=== PATIENT | male | born 1970 | race Caucasian/White ===

== ENCOUNTER 2020-02-15 09:58 | Outpatient (CLI) | payer OTHER ==
--- NOTE | 2020-02-15 10:27 | RAD ---
XR Foot Rt 3 View STANDARD History: Infection Comparison: None. Findings: Plantar soft tissue ulcer at the fifth metatarsal phalangeal joint. Fracture of the fourth metatarsal head/neck with erosive changes. Absent second and third metatarsal heads. Absent second toe distal to the metatarsal neck. Abnormal valgus angulation of the great toe metatarsal phalangeal joint and interphalangeal joint. Li sfranc interval is widened with erosive changes of the first and second tarsometatarsal joints. Impression: 1. Large plantar ulcer of the small toe metatarsal phalangeal joint with mild osteopenia and of the a djacent metatarsal head suggesting osteomyelitis. 2. Chronic osteomyelitis of the second, third and fourth metatarsal heads with pathologic fracture th rough the fourth metatarsal head. 3. Absent second and third metatarsal heads with amputation through the second metatarsal head and schrader bluxation of the third metatarsal phalangeal joint due to absent eroded metatarsal head.
== END 2020-02-15 09:59 | disposition home or self-care (01) ==
LOC: BICRAD 09:58
PROVIDERS: ATTEND Nurse Practitioner Family
DX: E10.621 Type 1 diabetes mellitus with foot ulcer (principal); L97.412 Non-pressure chronic ulcer of right heel and midfoot with fat layer exposed; M86.671 Other chronic osteomyelitis, right ankle and foot; M85.871 Other specified disorders of bone density and structure, right ankle and foot

== ENCOUNTER 2020-02-24 23:25 | Inpatient (IN) | payer OTHER ==
[2020-02-25 02:01] VITALS: BMI 18.2
[2020-02-25] MEDS ORDERED: Labetalol HCl 100 MG/20 ML VIAL SLOW IVP SCH (02:45)
[2020-02-25] MEDS ORDERED: Ondansetron ODT 4 MG TAB PO PRN (03:14)
[2020-02-25] MEDS ORDERED: Ondansetron PF 4 MG/2 ML Vial IVP PRN (03:14)
[2020-02-25] MEDS ORDERED: Dextrose 5% in Water 1,000 ML IV PRN (03:17)
[2020-02-25] MEDS ORDERED: Dextrose 50% Abboject 50 ML SYRINGE SLOW IVP PRN (03:17)
[2020-02-25] MEDS ORDERED: HumaLOG 300 UNITS/3 ML VIAL SC PRN (03:17)
[2020-02-25] MEDS ORDERED: Acetaminophen 325 MG TAB PO PRN (03:18)
[2020-02-25] MEDS ORDERED: Acetaminophen 650 MG Suppository PR PRN (03:18)
[2020-02-25 03:29] LABS: #Lymphocytes 0.6 thou/uL (1.20-3.40); #Monocytes 1.9 thou/uL (0.11-0.59); #Neutrophils 12.8 thou/uL (1.40-6.50); %Basophils 0.2 % (0.0-1.0); %Eosinophils 0.1 % (0.0-10.0); %Monocytes 12.4 % (0.0-10.0); %Neutrophils 83.3 % (42.0-75.0); Hemoglobin 10.9 g/dL (14.0-18.0); Mean Corpuscular HGB CONC 30.9 g/dL (32.0-36.0); Mean Platelet Volume 6.9 fL (7.4-10.4); Platelet Count 400 thou/uL (130-400); RBC Distribution Width 11.3 % (11.5-14.5); Red Blood Cell (RBC) Count 3.63 mill/uL (4.70-6.10); White Blood Cell (WBC) Count 15.4 thou/uL (4.8-10.8)
[2020-02-25 03:53] LABS: Lactic Acid 0.7 mmol/L (0.5-2.2)
--- NOTE | 2020-02-25 03:55 | PDOC.HHP ---
Hospitalist HPI - History of Present Illness Right foot cellulitis/osteomyelitis History of Present Illness: Patient seen at [facility] with complaints of feeling generally unwell and with n/v for the last several days. He has had minimal oral intake. He has been having issues with a persistent infection to the right lateral foot which has not healed. He also had an ulceration on the 2nd toe of the left foot with a scab that was recently removed. He has diabetic peripheral neuropathy, therefore does not experience any associated pain. States he has been able to walk despite the wounds. Has not had consistent wound care. He was seen at [facility] on 02/11/2020 for the grade 3 ulcer on the right lateral food. At that time the ulcer measured 2.2 x 2.8 x 0.02 cm. He had d ebridement and was recommended medihoney and dressing changes daily x 1 month. Arterial dopplers done at that time showed strong pulses bilaterally. States he was seen by podiatry in previous months. Patient complaints of a lack of appetite, n/v, and feeling feverish. No headaches or dizziness. No chest pain, palpitations or sob. Denies abdominal pain. No urinary symptoms. Normal bowel movements, last one was yesterday. ED COURSE: EKG done at outside ED Labs showed a WCC of 15.4, Hgb 10.9, Platelets 400. Neutrophils 83.3%, Bands 13%. Na+ 135, K+ 5.2, Bicarb 20, Chloride 94, AG 26. BUN 35, creat 1.77, GFR 41. LFTs and lipase normal. Trop negative. Alk phos 154. Otherwise unremarkable. Ketones 4.16 VBG: pH 7.40, PCO2 36.5, PO2 23.8 Left foot xray done and showed: great toe distal phalangeal base fracture. No destructive osteolysis inolving the left foot suggesting osteomyelitis. Right foot xray showed: Worsening osteomyelitis when compared to 02/15/2020. He has septic arthritis of 4th digit and 5th digig MTP join with interval developme nt of a pathologic fracture involving the 5th digit metatarsal neck. He was started on IV antibiotics with Vanc and Cefepime. Given NS at 30mL/Kg continuous infusion. Given Tylenol 1 g and 10 units of Novolin with improved in glucose to 300s from 600s. For nausea he received Ondansetron 4 mg IV x 2. PAST MEDICAL HISTORY: 1. Diabetes type 1 2. Diabetic neuropathy 3. Chronic foot wounds/ulcers 4. Hyperlipidemia 5. Hypertension. 6. Chronic pain. PAST SURGICAL HISTORY: 1. Right toe amputation FAMILY HISTORY: SOCIAL HISTORY: Reports drinking a couple of beers a day. No heavy alcohol abuse. No drug use or tobacco use. Fully independent. Lives with his family and walks on his own without assisted devices. ALLERGIES: No known drug allergy. CURRENT MEDICATIONS: 1. Lisinopril. 2. Rosuvastatin. 3. Atenolol. 4. Potassium gluconate. 5. Krill oil. - Exam General Appearance: NAD, awake alert Eye: PERRL, anicteric sclera ENT: normocephalic atraumatic, no oropharyngeal lesions, moist mucosa Neck: supple, no lymphadenopathy Heart: RRR, no murmur, normal peripheral pulses Respiratory: CTAB, no wheezes, no rales, normal chest expansion Gastrointestinal: soft, non-tender, non-distended, normal bowel sounds Extremities - other findings: swelling of right foot with erythema. DP strong bilaterally Skin - other findings: Lft 2nd toe: ulcerated dry wound, Rt lateral foot ulcer w/erythema/edema Neurological: cranial nerve grossly intact Neurological - other findings: bilateral lower extremity neuropathy, chronic Musculoskeletal: no muscle wasting Psychiatric: normal affect, normal behavior, A&O x 3 Hospitalist Results - Labs Result Diagrams: 02/25/20 03:19 Lab results: WBC 15.4 thou/uL (4.8-10.8) H 02/25/20 03:19 Hgb 10.9 g/dL (14.0-18.0) L 02/25/20 03:19 Hct 35.2 % (42.0-52.0) L 02/25/20 03:19 MCV 97.0 fL (78.0-98.0) 02/25/20 03:19 Plt Count 400 thou/uL (130-400) 02/25/20 03:19 Neutrophils % 83.3 % (42.0-75.0) H 02/25/20 03:19 Hospitalist H&P A/P - Problem (1) Osteomyelitis of foot Code(s): M86.9 - OSTEOMYELITIS, UNSPECIFIED Status: Acute Assessment and Plan: Continue IV antibiotics Consult Ortho Wound care consulted Consult ID (2) Bandemia Code(s): D72.825 - BANDEMIA Status: Acute Assessment and Plan: As above. Repeat CBC and add-on lactic acid. Monitor WCC (3) CHE (acute kidney injury) Code(s): N17.9 - ACUTE KIDNEY FAILURE, UNSPECIFIED Status: Acute Assessment and Plan: Monitor renal function IV fluids (4) Hyperglycemia Code(s): R73.9 - HYPERGLYCEMIA, UNSPECIFIED Status: Acute Assessment and Plan: Repeat labs including ketones, glucose and VBG IV hydration Given Insulin prior to transfer. Has insulin pump, consider d/c if glucose improved and will be kept NPO for surgical intervention (5) Insulin dependent diabetes mellitus Code(s): [id number] - Status: Chronic Assessment and Plan: monitor glucose please see above (6) Diabetic neuropathy Code(s): E11.40 - TYPE 2 DIABETES MELLITUS WITH DIABETIC NEUROPATHY, UNSP Status: Chronic (7) Hypertension Code(s): I10 - ESSENTIAL (PRIMARY) HYPERTENSION Status: Chronic Assessment and Plan: Monitor BP Resume home medications once verified (8) Nausea & vomiting Code(s): R11.2 - NAUSEA WITH VOMITING, UNSPECIFIED Status: Resolved Assessment and Plan: Continue PRN Zofran - Plan Plan: CODE STATUS FULL GI Prophylaxis with Famotidine. Discussed with attending who agrees with plan as above.
[2020-02-25 03:57] LABS: Anion Gap 21 mmol/L (10-20); BUN (Urea Nitrogen) 31 mg/dL (8.9-20.6); Calc. Creatinine Clearance 51 mL/min (70-130); Calcium 8.6 mg/dL (7.8-10.44); Carbon Dioxide 16 mmol/L (22-29); Chloride 102 mmol/L (98-107); Estimated GFR-MDRD 52; Glucose 383 mg/dL (70-105); Magnesium 2.3 mg/dL (1.6-2.6); Potassium 4.4 mmol/L (3.5-5.1); Sodium 135 mmol/L (136-145)
[2020-02-25] MEDS: Sodium Chloride 0.9% 1,000 ML IV SCH ×3 (04:13→21:14)
[2020-02-25] MEDS: Cefepime 2 GM in Sodium Chloride 0.9% 100 ML IVPB SCH (04:14)
[2020-02-25] MEDS: Vancomycin 1 GM in Premix Bag 1 BAG IVPB SCH (04:14)
[2020-02-25 04:24] LABS: INR-International Normal Ratio 1.2; PTT 32.6 sec (22.9-36.1)
[2020-02-25] MEDS ORDERED: Promethazine HCl 25 MG/ML VIAL SLOW IVP SCH (05:45)
[2020-02-25] MEDS: Famotidine/PF 20 mg/2ml Vial SLOW IVP SCH ×2 (08:22→21:14)
[2020-02-25] MEDS ORDERED: FLU VACC QS2020-21(6MOS UP)/PF 60 MCG/0.5 ML SYRINGE IM ONE (09:00)
[2020-02-25] MEDS: Atenolol 25 MG TAB PO SCH (09:01)
[2020-02-25] MEDS: Lisinopril 5 MG TAB PO SCH (09:01)
[2020-02-25] MEDS: Rosuvastatin 5 MG TAB PO SCH (09:01)
[2020-02-25] MEDS: Insulin Glargine 15 UNITS in Pre-Filled Syringe 1 EACH SC SCH ×2 (09:01→21:14)
[2020-02-25] MEDS: HumaLOG 300 UNITS/3 ML VIAL SC PRN ×2 (12:32→17:38)
--- NOTE | 2020-02-25 14:17 | PDOC.HOSPP ---
- Subjective Encounter Date: 02/25/20 Encounter Time: 10:30 Subjective: has hiccoughs, is npo no pain in his foot as such, is able to move his ankle and to some extent toes - Objective Vital Signs & Weight: Vital Signs (12 hours) Temp Pulse Resp BP Pulse Ox 02/25/20 11:15 98.4 F 84 17 164/77 H 99 02/25/20 07:40 98.3 F 107 H 16 190/88 H 99 02/25/20 06:10 176/84 H 02/25/20 05:38 98.7 F 02/25/20 03:04 99 F 97 16 172/78 H 100 Weight Weight 130 lb 11.2 oz I&O: 02/24/20 02/25/20 02/26/20 06:59 06:59 06:59 Output Total 250 Balance -250 Result Diagrams: 02/25/20 03:19 02/25/20 03:19 Additional Labs: Accuchecks 02/25/20 02/25/20 11:09 05:35 POC Glucose 391 H 366 H Hospitalist ROS - Medication Medications: Active Medications Generic Name Dose Route Start Last Admin Trade Name Freq PRN Reason Stop Dose Admin Atenolol 25 mg 02/25/20 09:00 02/25/20 09:01 Atenolol 25 Mg Tab PO 25 mg DAILY TANIYA Administration Famotidine 20 mg 02/25/20 09:00 02/25/20 08:22 Famotidine/Pf 20 Mg/2ml Vial SLOW IVP 20 mg Q12HR TANIYA Administration Vancomycin HCl 1 gm/ Device 200 mls @ 200 mls/hr 02/25/20 04:00 02/25/20 04:14 IVPB 200 mls 0400 TANIYA Administration Cefepime HCl 2 gm/ Sodium 100 mls @ 200 mls/hr 02/25/20 05:00 02/25/20 04:14 Chloride IVPB 100 mls 0500 TANIYA Administration Sodium Chloride 1,000 mls @ 120 mls/hr 02/25/20 03:45 02/25/20 13:05 Normal Saline 0.9% IV 1,000 mls .Q8H20M TANIYA Administration Insulin Glargine 15 units/ 0.15 mls @ 0 mls/hr 02/25/20 09:00 02/25/20 09:01 Miscellaneous Medication SC 0.15 mls BID TANIYA Administration Insulin Human Lispro 0 units 02/25/20 03:17 02/25/20 12:32 Humalog 300 Units/3 Ml Vial SC 13 unit .AGGRESSIVE SLIDING PRN Administration Aggressive Correctional Scale Lisinopril 5 mg 02/25/20 09:00 02/25/20 09:01 Lisinopril 5 Mg Tab PO 5 mg DAILY TANIYA Administration Ondansetron HCl 4 mg 02/25/20 03:14 02/25/20 08:22 Ondansetron Odt 4 Mg Tab PO 4 mg Q6H PRN Administration Nausea/Vomiting Rosuvastatin Calcium 5 mg 02/25/20 09:00 02/25/20 09:01 Rosuvastatin 5 Mg Tab PO 5 mg DAILY TANIYA Administration - Exam General Appearance: awake alert Eye: PERRL, anicteric sclera ENT: no oropharyngeal lesions, moist mucosa Neck: supple, no JVD Heart: RRR, no murmur Respiratory: no wheezes, no rales Gastrointestinal: soft, non-tender, non-distended, normal bowel sounds Extremities - other findings: right forefoot in dressing, has plantar ulcer with edema, left 2nd toe ulce Neurological: cranial nerve grossly intact, no focal deficits Psychiatric: normal affect, A&O x 3 Hosp A/P (1) Osteomyelitis of foot Code(s): M86.9 - OSTEOMYELITIS, UNSPECIFIED Status: Acute Qualifiers: Osteomyelitis type: unspecified type Laterality: right Qualified Code(s): M86.9 - Osteomyelitis, unspecified (2) CHE (acute kidney injury) Code(s): N17.9 - ACUTE KIDNEY FAILURE, UNSPECIFIED Status: Acute (3) Diabetic neuropathy Code(s): E11.40 - TYPE 2 DIABETES MELLITUS WITH DIABETIC NEUROPATHY, UNSP Status: Chronic Qualifiers: Diabetes mellitus type: type 2 Diabetes mellitus complication detail: diabetic polyneuropathy Qualified Code(s): E11.42 - Type 2 diabetes mellitus with diabetic polyneuropathy (4) Hypertension Code(s): I10 - ESSENTIAL (PRIMARY) HYPERTENSION Status: Chronic Qualifiers: Hypertension type: essential hypertension Qualified Code(s): I10 - Essential (primary) hypertension (5) Insulin dependent diabetes mellitus Code(s): [id number] - Status: Chronic (6) Chronic anemia Code(s): D64.9 - ANEMIA, UNSPECIFIED Status: Chronic (7) FTT (failure to thrive) in adult Status: Acute - Plan is on cefepime and vanc lantus bid with aggressive coverage for now, no insulin pump is npo, awaiting surgical eval, likely will need ray amputation of right 4th and 5th Metatarsals recent arterial doppler in wound care was normal per patient hemostable he is very thin with a bmi of around 19 tx to med floor
[2020-02-25] MEDS ORDERED: traMADol HCl 50 MG TAB PO PRN (19:42)
[2020-02-25] MEDS: Acetaminophen 500 MG TAB PO PRN (21:55)
--- NOTE | 2020-02-25 23:00 | CON ---
DATE OF CONSULTATION: 02/25/2020 REASON FOR CONSULTATION: Complications related to neuropathy with inflammatory process in the right foot lateral aspect and second toe left foot with gangrene. HISTORY OF PRESENT ILLNESS: A 49-year-old with history of type 1 diabetes, hyperlipidemia, neuropathy, prior amputation of the right second toe, who presented with chronic inflammatory process with ulceration of the bottom aspect of the right lateral forefoot. He also noted discoloration of the second toe left foot. He apparently saw other doctors for this including a credit cashier, and he eventually had to be admitted. He was admitted yesterday. Initial findings, BP 180/89, pulse 128, O2 saturation 98%. The exam shows the foot findings with gangrene of the second toe left side and ulcer at the bottom aspect of the right lateral forefoot with swelling of the fourth and fifth MPJs skin site with erythema. Other findings included a sodium 135, creatinine 1.45, white cell count of 15.4, hemoglobin 10.9, platelets neutrophils. The glucose has ranged from 280 to 366. The foot x-ray, we have left foot x-ray and that did not show any destructive osteolysis and then there is a right foot x-ray, which showed osteomyelitis, septic arthritis fourth digit and fifth digit and DP joint with development of pathologic fracture metatarsal neck. Currently, Mr. Cifuentes is lying in bed. He appears in no distress. Denies any headaches, visual symptoms, sore throat, odynophagia, or dysphagia. No cough, sputum production, or chest pain. No abdominal pain or diarrhea. No genitourinary symptoms. He has neuropathy in the diminished sensation in the lower extremities. Not much pain right now. PAST MEDICAL HISTORY: Type 1 diabetes with neuropathy, prior amputation of the right second toe, and hyperlipidemia. SOCIAL HISTORY: Never smoker, lives with family in the area. He is unable to work at the moment. ALLERGIES: NONE. CURRENT MEDICATIONS: 1. Cefepime. 2. Glucagon. 3. Insulin. 4. Lisinopril. 5. Rosuvastatin. 6. Vancomycin. PHYSICAL EXAMINATION: VITAL SIGNS: T-max 99.2, blood pressure 140/70, pulse 87, respirations 16 to 18, and O2 saturation 100%. SKIN: Shows the right lateral forefoot with erythema, swelling, and ulcer at the bottom aspect of fourth and fourth digits MPJs skin site. In the left side, there is a necrotic second toe. No lymphadenopathy. HEENT: Ocular movements are conjugate. Oral cavity with numerous missing teeth. NECK: Supple. LUNGS: Symmetric. Clear breath sounds. HEART: S1 and S2, regular rate. No S3 or S4. ABDOMEN: Soft. Not distended or tender. No ascites. No bladder distention. EXTREMITIES: Pulses are 1+ in dorsalis pedis. Cap refill has kind of sluggish in the toes. I would say around going to 3 to 4 seconds. No edema. NEUROLOGIC: Nonfocal including cognitive function. Speech is normal. ASSESSMENT: Type 1 diabetes with neuropathy and inflammatory complications secondary to ulcerations and pressure damage to the second toe left foot. The right side is compromised with osteomyelitis. This is a chronic osteomyelitis site and we will need amputation of the fourth and fifth rays. He needs a surgical consultation. The left side will need amputation of the second toe cultures and then antimicrobial therapy guided by the culture results, hopefully with oral agents. His vascular supplies appear to be decent for healing, although the cap refill is little bit sluggish. Job ID: [id number]
--- NOTE | 2020-02-26 01:20 | CON ---
DATE OF CONSULTATION: HISTORY OF PRESENT ILLNESS: Jose Cifuentes is a type 1 diabetic, 49 years old, admitted for diabetic foot problems. He has severe infection in his right foot. He has had previous amputations to right second secondarily. He has a plantar neuropathic ulcer extending to the metatarsophalangeal joints of the 4th and 5th toes right foot. Plan amputation of the 4th and 5th toes, possibly the third toe. He has gangrene of his left second toe. We will plan amputation of that. 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 He is not be able to work later because of his foot problems. ALLERGIES: NONE. SOCIAL HISTORY: Tobacco, none. Alcohol, none. MEDICATIONS: In the hospital, vancomycin and cefepime. Outpatient medications: 1. Pravastatin. 2. Potassium gluconate. 3. Lisinopril. 4. Atenolol. PAST SURGICAL HISTORY: Amputation of right second toe and metatarsal. PAST MEDICAL HISTORY: Diabetes mellitus type 1, insulin dependent, elevated cholesterol. REVIEW OF SYSTEMS: Noncontributory. PHYSICAL EXAMINATION: VITAL SIGNS: Height 5 foot 11, 130 pounds, BMI 18. HEAD EARS, EYES, NOSE AND THROAT: Unremarkable. LUNGS: Clear to auscultation. CARDIAC: Regular rate and rhythm without murmur or gallop. ABDOMEN: Soft, nontender. EXTREMITIES: Palpable, femoral popliteal pedal pulses. Left 2nd toe, dry gangrene, distal 2/3. Right 2nd toe and metatarsal, previously amputated wound healed. The 3rd toe is slightly forward, 4th and 5th toes beneath plantar neuropathic ulcer with purulent discharge, reddened, swollen and edematous. LABORATORY DATA: White count 15, hemoglobin 10.9. Basic metabolic profile normal. Glucose 383. Hemoglobin A1c not ordered. Coagulation studies normal. COVID test negative 02/24/2020. ASSESSMENT: Diabetic infection, both feet. PLAN: Amputation of the right 4th and 5th toes, possible 3rd. Plan amputation of left second toe. He understands risks, benefits, and consents. We will consult case management rn and Wound Care. Plan is on Saturday. Job ID: [id number]
[2020-02-26] MEDS: Vancomycin 1 GM in Premix Bag 1 BAG IVPB SCH (03:42)
[2020-02-26] MEDS: Sodium Chloride 0.9% 1,000 ML IV SCH ×3 (03:43→22:21)
[2020-02-26] MEDS: Cefepime 2 GM in Sodium Chloride 0.9% 100 ML IVPB SCH (05:09)
[2020-02-26] MEDS: Atenolol 25 MG TAB PO SCH (07:13)
[2020-02-26 07:25] LABS: #Basophils 0.1 thou/uL (0.0-0.2); #Eosinphils 0.2 thou/uL (0.0-0.7); #Lymphocytes 1.3 thou/uL (1.20-3.40); #Monocytes 2.3 thou/uL (0.11-0.59); #Neutrophils 13.8 thou/uL (1.40-6.50); %Basophils 0.4 % (0.0-1.0); %Eosinophils 0.9 % (0.0-10.0); %Lymphocytes 7.4 % (21.0-51.0); %Neutrophils 78.3 % (42.0-75.0); Mean Corpuscular HGB CONC 31.7 g/dL (32.0-36.0); Mean Corpuscular Hemoglobin 31.2 pg (27.0-31.0); Mean Corpuscular Volume 98.4 fL (78.0-98.0); Mean Platelet Volume 6.6 fL (7.4-10.4); Platelet Count 421 thou/uL (130-400); RBC Distribution Width 11.2 % (11.5-14.5); Red Blood Cell (RBC) Count 3.52 mill/uL (4.70-6.10); White Blood Cell (WBC) Count 17.6 thou/uL (4.8-10.8)
[2020-02-26 07:43] LABS: Anion Gap 15 mmol/L (10-20); BUN (Urea Nitrogen) 28 mg/dL (8.9-20.6); Calc. Creatinine Clearance 66 mL/min (70-130); Calcium 8.6 mg/dL (7.8-10.44); Carbon Dioxide 18 mmol/L (22-29); Chloride 111 mmol/L (98-107); Estimated GFR-MDRD 69; Glucose 142 mg/dL (70-105); Potassium 4.1 mmol/L (3.5-5.1); Sodium 140 mmol/L (136-145)
[2020-02-26] MEDS: Insulin Glargine 25 UNITS in Pre-Filled Syringe 1 EACH SC SCH ×2 (09:00→21:42)
[2020-02-26] MEDS ORDERED: PROPOFOL 200 MG/20 ML VIAL ONE (10:19)
[2020-02-26] MEDS ORDERED: Lidocaine 1% PF 5 ML VIAL ONE (10:19)
[2020-02-26] MEDS ORDERED: PHENYLEPHRINE-NS 100 MCG/ML 10 ML SYRINGE ONE (10:19)
[2020-02-26] MEDS ORDERED: EPHEDRINE 25 MG/5 ML SYRINGE ONE (10:19)
[2020-02-26] MEDS ORDERED: Ondansetron PF 4 MG/2 ML Vial ONE (10:19)
[2020-02-26] MEDS ORDERED: Fentanyl 100 MCG/2 ML VIAL ONE ×2 (10:58→12:41)
[2020-02-26] MEDS ORDERED: Bacitracin Zinc Ointment 30 gm TUBE ONE (11:51)
[2020-02-26] MEDS ORDERED: Promethazine HCl 25 MG/ML VIAL IM PRN (12:27)
[2020-02-26] MEDS ORDERED: Ondansetron HCl/PF 4 MG/2 ML Vial IVP PRN (12:27)
[2020-02-26] MEDS ORDERED: Promethazine HCl 25 MG/ML VIAL SLOW IVP PRN (12:27)
[2020-02-26] MEDS ORDERED: Sodium Chloride 0.9% 10 ML ONE (12:41)
--- NOTE | 2020-02-26 13:17 | OP ---
DATE OF PROCEDURE: 02/26/2020 PREOPERATIVE DIAGNOSES: Type 1 diabetic infection of right foot, status post previous amputation of right second toe, now with severe diabetic infection involving the right 4th and 5th toes and metatarsals, and deformity of the 2nd toe, discussed with the patient, desired amputation of that toe. Gangrene of left second toe. PROCEDURES PERFORMED: Amputation of left 2nd toe through the proximal phalanx with primary closure. Amputation of the right 3rd, 4th, and 5th toes and metatarsals with wound irrigated and wound VAC application. ANESTHESIA: General. Note, good blood supply, pulsatile bleeding, neuropathic diabetic ulcerations and infection. DESCRIPTION OF PROCEDURE: The patient was taken to the operating room, where under general anesthesia, both lower extremities were prepared with Betadine and draped in routine fashion. Amputation of the left second toe through the proximal phalanx with a fishmouth incision, amputated the phalanx and resected with a rongeur. Connective tissue debrided sharply, wound irrigated. Good hemostasis obtained with cautery. Subcutaneous tissue was approximated with 4-0 Monocryl, skin with 4-0 Prolene. Sterile dressing applied. Amputation of the right 3rd, 4th, and 5th toes and metatarsals carried out, sparing skin as much as possible while resecting the neuropathic plantar ulcer beneath the 4th and 5th toes. There was copious amount of thick purulent material that drained. Metatarsals transected with a bone cutter. Connective tissue debrided sharply, infected necrotic tissue debrided sharply back to healthy tissue. Wound irrigated. Good hemostasis noted. Wound Care Team arrived to place a wound VAC. The patient tolerated the procedure well. Job ID: [id number]
--- NOTE | 2020-02-26 13:18 | PDOC.HOSPP ---
- Subjective Encounter Date: 02/26/20 Encounter Time: 12:00 Subjective: has some pain in his foot, no sob - Objective Vital Signs & Weight: Vital Signs (12 hours) Temp Pulse Resp BP BP Pulse Ox 02/26/20 07:13 79 155/79 H 02/26/20 04:00 98.1 F 79 16 150/78 H 97 Weight Admit Weight 130 lb 11.2 oz Weight 130 lb 11.2 oz I&O: 02/25/20 02/26/20 02/27/20 06:59 06:59 06:59 Output Total 250 Balance -250 Result Diagrams: 02/26/20 07:10 02/26/20 07:10 Additional Labs: Accuchecks 02/25/20 02/25/20 19:46 16:10 POC Glucose 207 H 282 H Hospitalist ROS - Medication Medications: Active Medications Generic Name Dose Route Start Last Admin Trade Name Freq PRN Reason Stop Dose Admin Acetaminophen 1,000 mg 02/25/20 19:42 02/25/20 21:55 Acetaminophen 500 Mg Tab PO 1,000 mg Q6H PRN Administration Moderate to Severe Pain (6-10) Atenolol 25 mg 02/25/20 09:00 02/26/20 07:13 Atenolol 25 Mg Tab PO 25 mg DAILY TANIYA Administration Famotidine 20 mg 02/25/20 09:00 02/25/20 21:14 Famotidine/Pf 20 Mg/2ml Vial SLOW IVP 20 mg Q12HR TANIYA Administration Vancomycin HCl 1 gm/ Device 200 mls @ 200 mls/hr 02/25/20 04:00 02/26/20 03:42 IVPB 200 mls 0400 TANIYA Administration Cefepime HCl 2 gm/ Sodium 100 mls @ 200 mls/hr 02/25/20 05:00 02/26/20 05:09 Chloride IVPB 100 mls 0500 TANIYA Administration Sodium Chloride 1,000 mls @ 120 mls/hr 02/25/20 03:45 02/26/20 03:43 Normal Saline 0.9% IV 1,000 mls .Q8H20M TANIYA Administration Insulin Human Lispro 0 units 02/25/20 03:17 02/25/20 17:38 Humalog 300 Units/3 Ml Vial SC 9 unit .AGGRESSIVE SLIDING PRN Administration Aggressive Correctional Scale Lisinopril 5 mg 02/25/20 09:00 02/25/20 09:01 Lisinopril 5 Mg Tab PO 5 mg DAILY TANIYA Administration Ondansetron HCl 4 mg 02/25/20 03:14 02/25/20 08:22 Ondansetron Odt 4 Mg Tab PO 4 mg Q6H PRN Administration Nausea/Vomiting Rosuvastatin Calcium 5 mg 02/25/20 09:00 02/25/20 09:01 Rosuvastatin 5 Mg Tab PO 5 mg DAILY TANIYA Administration - Exam General Appearance: awake alert Eye: PERRL, anicteric sclera ENT: no oropharyngeal lesions, moist mucosa Neck: supple, no JVD Heart: RRR, no murmur Respiratory: no wheezes, no rales Gastrointestinal: soft, non-tender, non-distended, normal bowel sounds Extremities: no edema Neurological: cranial nerve grossly intact, no focal deficits Psychiatric: normal affect, A&O x 3 Hosp A/P (1) Osteomyelitis of foot Code(s): M86.9 - OSTEOMYELITIS, UNSPECIFIED Status: Acute Qualifiers: Osteomyelitis type: unspecified type Laterality: right Qualified Code(s): M86.9 - Osteomyelitis, unspecified (2) CHE (acute kidney injury) Code(s): N17.9 - ACUTE KIDNEY FAILURE, UNSPECIFIED Status: Acute (3) Diabetic neuropathy Code(s): E11.40 - TYPE 2 DIABETES MELLITUS WITH DIABETIC NEUROPATHY, UNSP Status: Chronic Qualifiers: Diabetes mellitus type: type 2 Diabetes mellitus complication detail: diabetic polyneuropathy Qualified Code(s): E11.42 - Type 2 diabetes mellitus with diabetic polyneuropathy (4) Hypertension Code(s): I10 - ESSENTIAL (PRIMARY) HYPERTENSION Status: Chronic Qualifiers: Hypertension type: essential hypertension Qualified Code(s): I10 - Essential (primary) hypertension (5) Insulin dependent diabetes mellitus Code(s): [id number] - Status: Chronic (6) Chronic anemia Code(s): D64.9 - ANEMIA, UNSPECIFIED Status: Chronic (7) FTT (failure to thrive) in adult Status: Acute - Plan is s/p amputation/surgery for foot, on cefepime and vanc lantus bid with aggressive coverage for now, no insulin pump recent arterial doppler in wound care was normal per patient hemostable he is very thin with a bmi of around 19
[2020-02-26] MEDS: HumaLOG 300 UNITS/3 ML VIAL SC PRN ×2 (14:10→17:26)
[2020-02-26] MEDS: Famotidine/PF 20 mg/2ml Vial SLOW IVP SCH ×2 (14:24→21:42)
[2020-02-26] MEDS: Rosuvastatin 5 MG TAB PO SCH (14:25)
[2020-02-26] MEDS: Lisinopril 5 MG TAB PO SCH (14:34)
[2020-02-26] MEDS: traMADol HCl 50 MG TAB PO PRN (20:07)
[2020-02-26] MEDS ORDERED: Mag-Al 1200 mg/1200 mg/30 ML UDCUP PO PRN (22:08)
[2020-02-27 04:12] LABS: Vancomycin, Trough 6.7 ug/mL
[2020-02-27 04:25] LABS: Anion Gap 12 mmol/L (10-20); BUN (Urea Nitrogen) 19 mg/dL (8.9-20.6); Calc. Creatinine Clearance 76 mL/min (70-130); Carbon Dioxide 17 mmol/L (22-29); Chloride 108 mmol/L (98-107); Estimated GFR-MDRD 81; Glucose 280 mg/dL (70-105); Potassium 4.1 mmol/L (3.5-5.1); Sodium 133 mmol/L (136-145)
[2020-02-27] MEDS: traMADol HCl 50 MG TAB PO PRN ×3 (04:58→22:43)
[2020-02-27] MEDS: Cefepime 2 GM in Sodium Chloride 0.9% 100 ML IVPB SCH (04:59)
[2020-02-27] MEDS ORDERED: Vancomycin HCl 1.25 GM in Sodium Chloride 0.9% 250 ML 250 ML IVPB SCH (05:00)
[2020-02-27] MEDS: Vancomycin 1 GM in Premix Bag 1 BAG IVPB SCH ×2 (05:52→16:25)
[2020-02-27] MEDS: HumaLOG 300 UNITS/3 ML VIAL SC PRN (05:54)
[2020-02-27] MEDS: Sodium Chloride 0.9% 1,000 ML IV SCH (07:20)
[2020-02-27 08:00] LABS: Band 23 % (5-11); Eosinophils 2 % (0-10); Hemoglobin 9.9 g/dL (14.0-18.0); Lymphocytes 16 % (21-51); MDiff Complete? YES; Mean Corpuscular Hemoglobin 31.7 pg (27.0-31.0); Mean Corpuscular Volume 99.3 fL (78.0-98.0); Mean Platelet Volume 7.8 fL (7.4-10.4); Monocytes 5 % (0-10); Neutrophil 54 % (42-75); Platelet Count 380 thou/uL (130-400); Platelet Morphology Comment Appears Adequate; RBC Distribution Width 11.4 % (11.5-14.5); Red Blood Cell (RBC) Count 3.13 mill/uL (4.70-6.10); White Blood Cell (WBC) Count 13.4 thou/uL (4.8-10.8)
[2020-02-27] MEDS: Insulin Glargine 25 UNITS in Pre-Filled Syringe 1 EACH SC SCH ×2 (08:12→21:34)
[2020-02-27] MEDS: Rosuvastatin 5 MG TAB PO SCH (08:12)
[2020-02-27] MEDS: Lisinopril 5 MG TAB PO SCH (08:12)
[2020-02-27] MEDS: Atenolol 25 MG TAB PO SCH (08:12)
[2020-02-27] MEDS: Famotidine/PF 20 mg/2ml Vial SLOW IVP SCH ×2 (08:12→21:33)
--- NOTE | 2020-02-27 12:45 | PDOC.HOSPP ---
- Subjective Encounter Date: 02/27/20 Encounter Time: 11:15 Subjective: no pain in foot feels better - Objective Vital Signs & Weight: Vital Signs (12 hours) Temp Pulse Resp BP Pulse Ox 02/27/20 11:32 98.5 F 79 20 111/96 H 96 02/27/20 08:12 80 02/27/20 08:00 95 02/27/20 07:38 97.9 F 80 20 106/67 95 02/27/20 04:00 98.4 F 83 18 136/74 95 Weight Admit Weight 130 lb 11.2 oz Weight 130 lb 11.2 oz I&O: 02/26/20 02/27/20 02/28/20 06:59 06:59 06:59 Intake Total 2650 360 Output Total 550 Balance 2100 360 Result Diagrams: 02/27/20 03:14 02/27/20 03:14 Additional Labs: Accuchecks 02/27/20 02/27/20 11:36 04:48 POC Glucose 96 234 H Hospitalist ROS - Medication Medications: Active Medications Generic Name Dose Route Start Last Admin Trade Name Freq PRN Reason Stop Dose Admin Acetaminophen 1,000 mg 02/25/20 19:42 02/25/20 21:55 Acetaminophen 500 Mg Tab PO 1,000 mg Q6H PRN Administration Moderate to Severe Pain (6-10) Al Hydroxide/Mg Hydroxide 30 ml 02/26/20 22:08 02/27/20 04:57 Mag-Al 1200 Mg/1200 Mg/30 Ml Udcup PO 30 ml Q4H PRN Administration Indigestion Atenolol 25 mg 02/25/20 09:00 02/27/20 08:12 Atenolol 25 Mg Tab PO 25 mg DAILY TANIYA Administration Famotidine 20 mg 02/25/20 09:00 02/27/20 08:12 Famotidine/Pf 20 Mg/2ml Vial SLOW IVP 20 mg Q12HR TANIYA Administration Cefepime HCl 2 gm/ Sodium 100 mls @ 200 mls/hr 02/25/20 05:00 02/27/20 04:59 Chloride IVPB 100 mls 0500 TANIYA Administration Insulin Glargine 25 units/ 0.25 mls @ 0 mls/hr 02/26/20 09:00 02/27/20 08:12 Miscellaneous Medication SC 0.25 mls BID TANIYA Administration Insulin Human Lispro 0 units 02/25/20 03:17 02/27/20 05:54 Humalog 300 Units/3 Ml Vial SC 6 unit .AGGRESSIVE SLIDING PRN Administration Aggressive Correctional Scale Lisinopril 5 mg 02/25/20 09:00 02/27/20 08:12 Lisinopril 5 Mg Tab PO 5 mg DAILY TANIYA Administration Ondansetron HCl 4 mg 02/25/20 03:14 02/25/20 08:22 Ondansetron Odt 4 Mg Tab PO 4 mg Q6H PRN Administration Nausea/Vomiting Rosuvastatin Calcium 5 mg 02/25/20 09:00 02/27/20 08:12 Rosuvastatin 5 Mg Tab PO 5 mg DAILY TANIYA Administration Tramadol HCl 100 mg 02/25/20 19:42 02/27/20 04:58 Tramadol Hcl 50 Mg Tab PO 100 mg Q6H PRN Administration Pain 4-5 - Exam General Appearance: awake alert Eye: PERRL, anicteric sclera ENT: no oropharyngeal lesions, moist mucosa Neck: supple, no JVD Heart: RRR, no murmur Respiratory: no wheezes, no rales Gastrointestinal: soft, non-tender, non-distended, normal bowel sounds Extremities - other findings: right forefoot in wound vac Neurological: cranial nerve grossly intact, no focal deficits Psychiatric: normal affect, A&O x 3 Hosp A/P (1) Osteomyelitis of foot Code(s): M86.9 - OSTEOMYELITIS, UNSPECIFIED Status: Acute Qualifiers: Osteomyelitis type: unspecified type Laterality: right Qualified Code(s): M86.9 - Osteomyelitis, unspecified (2) CHE (acute kidney injury) Code(s): N17.9 - ACUTE KIDNEY FAILURE, UNSPECIFIED Status: Resolved (3) Diabetic neuropathy Code(s): E11.40 - TYPE 2 DIABETES MELLITUS WITH DIABETIC NEUROPATHY, UNSP Status: Chronic Qualifiers: Diabetes mellitus type: type 2 Diabetes mellitus complication detail: diabetic polyneuropathy Qualified Code(s): E11.42 - Type 2 diabetes mellitus with diabetic polyneuropathy (4) Hypertension Code(s): I10 - ESSENTIAL (PRIMARY) HYPERTENSION Status: Chronic Qualifiers: Hypertension type: essential hypertension Qualified Code(s): I10 - Essential (primary) hypertension (5) Insulin dependent diabetes mellitus Code(s): AXX7087 - Status: Chronic (6) Chronic anemia Code(s): D64.9 - ANEMIA, UNSPECIFIED Status: Chronic (7) FTT (failure to thrive) in adult Status: Acute - Plan is s/p amputation of right 3,4 and 5 metatarsals and left 2nd toe 02/26/20, on cefepime and vanc lantus bid with aggressive coverage for now, to start insulin pump from am needs wound vac and histopath for outpt antibiotics determination recent arterial doppler in wound care was normal per patient hemostable he is very thin with a bmi of around 19
[2020-02-28] MEDS: Cefepime 2 GM in Sodium Chloride 0.9% 100 ML IVPB SCH (04:28)
[2020-02-28] MEDS: Vancomycin 1 GM in Premix Bag 1 BAG IVPB SCH (05:12)
[2020-02-28 06:23] LABS: Anion Gap 12 mmol/L (10-20); BUN (Urea Nitrogen) 12 mg/dL (8.9-20.6); Calc. Creatinine Clearance 96 mL/min (70-130); Calcium 8.1 mg/dL (7.8-10.44); Carbon Dioxide 20 mmol/L (22-29); Chloride 105 mmol/L (98-107); Estimated GFR-MDRD Greater than 90; Glucose 101 mg/dL (70-105); Potassium 3.6 mmol/L (3.5-5.1); Sodium 133 mmol/L (136-145)
[2020-02-28] MEDS: Lisinopril 5 MG TAB PO SCH (08:08)
[2020-02-28] MEDS: Atenolol 25 MG TAB PO SCH (08:08)
[2020-02-28] MEDS: Rosuvastatin 5 MG TAB PO SCH (08:08)
[2020-02-28] MEDS: Famotidine/PF 20 mg/2ml Vial SLOW IVP SCH (08:08)
[2020-02-28] MEDS: Insulin Glargine 25 UNITS in Pre-Filled Syringe 1 EACH SC SCH ×2 (08:39→10:16)
--- NOTE | 2020-02-28 11:53 | PDOC.HOSPP ---
- Subjective Encounter Date: 02/28/20 Encounter Time: 07:00 Subjective: feels better has pain in his surgical sites when he tries to ambulate with PT - Objective Vital Signs & Weight: Vital Signs (12 hours) Temp Pulse Resp BP Pulse Ox 02/28/20 08:08 84 02/28/20 08:00 91 L 02/28/20 07:37 98.3 F 84 18 145/74 H 91 L 02/28/20 05:16 98.3 F 84 18 132/66 91 L 02/28/20 00:00 98.6 F 81 18 129/71 96 Weight Admit Weight 130 lb 11.2 oz Weight 130 lb 11.2 oz I&O: 02/27/20 02/28/20 02/29/20 06:59 06:59 06:59 Intake Total 2650 1610 240 Output Total 550 Balance 2100 1610 240 Result Diagrams: 02/27/20 03:14 02/28/20 05:46 Additional Labs: Accuchecks 02/28/20 02/27/20 02/27/20 05:23 19:58 17:34 POC Glucose 85 105 H 90 02/26/20 02/26/20 02/26/20 12:14 09:19 08:57 POC Glucose 213 H 141 H 220 H 02/26/20 02/26/20 06:18 04:53 POC Glucose 170 H 131 H Hospitalist ROS - Medication Medications: Active Medications Generic Name Dose Route Start Last Admin Trade Name Freq PRN Reason Stop Dose Admin Acetaminophen 1,000 mg 02/25/20 19:42 02/25/20 21:55 Acetaminophen 500 Mg Tab PO 1,000 mg Q6H PRN Administration Moderate to Severe Pain (6-10) Al Hydroxide/Mg Hydroxide 30 ml 02/26/20 22:08 02/27/20 04:57 Mag-Al 1200 Mg/1200 Mg/30 Ml Udcup PO 30 ml Q4H PRN Administration Indigestion Atenolol 25 mg 02/25/20 09:00 02/28/20 08:08 Atenolol 25 Mg Tab PO 25 mg DAILY TANIYA Administration Famotidine 20 mg 02/25/20 09:00 02/28/20 08:08 Famotidine/Pf 20 Mg/2ml Vial SLOW IVP 20 mg Q12HR TANIYA Administration Cefepime HCl 2 gm/ Sodium 100 mls @ 200 mls/hr 02/25/20 05:00 02/28/20 04:28 Chloride IVPB 100 mls 0500 TANIYA Administration Vancomycin HCl 1 gm/ Device 200 mls @ 200 mls/hr 02/27/20 17:00 02/28/20 05:12 IVPB 200 mls 0500,1700 TANIYA Administration Insulin Human Lispro 0 units 02/25/20 03:17 02/27/20 05:54 Humalog 300 Units/3 Ml Vial SC 6 unit .AGGRESSIVE SLIDING PRN Administration Aggressive Correctional Scale Lisinopril 5 mg 02/25/20 09:00 02/28/20 08:08 Lisinopril 5 Mg Tab PO 5 mg DAILY TANIYA Administration Ondansetron HCl 4 mg 02/25/20 03:14 02/25/20 08:22 Ondansetron Odt 4 Mg Tab PO 4 mg Q6H PRN Administration Nausea/Vomiting Pantoprazole Sodium 40 mg 02/28/20 09:00 02/28/20 08:08 Pantoprazole 40 Mg Tab PO 40 mg DAILY TANIYA Administration Rosuvastatin Calcium 5 mg 02/25/20 09:00 02/28/20 08:08 Rosuvastatin 5 Mg Tab PO 5 mg DAILY TANIYA Administration Tramadol HCl 100 mg 02/25/20 19:42 02/27/20 22:43 Tramadol Hcl 50 Mg Tab PO 100 mg Q6H PRN Administration Pain 4-5 - Exam General Appearance: awake alert Eye: PERRL, anicteric sclera ENT: no oropharyngeal lesions, moist mucosa Neck: supple, no JVD Heart: RRR, no murmur Respiratory: no wheezes, no rales Gastrointestinal: soft, non-tender, non-distended, normal bowel sounds Extremities: no edema Extremities - other findings: right foot in wound vac Neurological: cranial nerve grossly intact, no focal deficits Psychiatric: normal affect, A&O x 3 Hosp A/P (1) Osteomyelitis of foot Code(s): M86.9 - OSTEOMYELITIS, UNSPECIFIED Status: Acute Qualifiers: Osteomyelitis type: unspecified type Laterality: right Qualified Code(s): M86.9 - Osteomyelitis, unspecified (2) CHE (acute kidney injury) Code(s): N17.9 - ACUTE KIDNEY FAILURE, UNSPECIFIED Status: Resolved (3) Diabetic neuropathy Code(s): E11.40 - TYPE 2 DIABETES MELLITUS WITH DIABETIC NEUROPATHY, UNSP Status: Chronic Qualifiers: Diabetes mellitus type: type 2 Diabetes mellitus complication detail: diabe tic polyneuropathy Qualified Code(s): E11.42 - Type 2 diabetes mellitus with diabetic polyneuropathy (4) Hypertension Code(s): I10 - ESSENTIAL (PRIMARY) HYPERTENSION Status: Chronic Qualifiers: Hypertension type: essential hypertension Qualified Code(s): I10 - Essential (primary) hypertension (5) Insulin dependent diabetes mellitus Code(s): [id number] - Status: Chronic (6) Chronic anemia Code(s): D64.9 - ANEMIA, UNSPECIFIED Status: Chronic (7) FTT (failure to thrive) in adult Status: Acute - Plan is s/p amputation of right 3,4 and 5 metatarsals and left 2nd toe 02/26/20, on cefepime and vanc to start insulin pump from today, humalog insulin will be provided here. He does not want lantus or long acting insulins when he starts his pump. needs wound vac and histopath for outpt antibiotic determination recent arterial doppler in wound care was normal per patient hemostable he is very thin with a bmi of around 19
[2020-02-28] MEDS: cefTRIAXone\\ROCEPHIN 2 GM in Sodium Chloride 0.9% 100 ML IVPB SCH (15:44)
--- NOTE | 2020-02-28 15:44 | PRG ---
DATE OF SERVICE: 02/28/2020 SUBJECTIVE: He had an amputation of the third, fourth, and fifth rays, right foot and the second toe left. Negative pressure dressing on the right side. Having hiccups for the past few hours. No heartburn. No abdominal pain. No genitourinary symptoms. OBJECTIVE: VITAL SIGNS: Normal temperature, blood pressure 140/70, heart rate 84, respiratory rate 18, and O2 saturation 91 on room air. LUNGS: Symmetric clear breath sounds. HEART: S1 and S2, regular rate. ABDOMEN: Soft with mild distention. No ascites. No bladder distention. EXTREMITIES: He has a negative pressure dressing on the right side and just dressing on the left. LABORATORY DATA: White cell count 13.4, hemoglobin 9.9, platelets 380 with 22% bands. INR 1.2. Creatinine 0.77. Microbiology, we have 2 sets of blood cultures. Group B strep. The surgical procedure was reviewed and the amputation of right third, fourth, and fifth rays carried out. Copious amount of thick purulent material drained. The second toe was amputated on the left side. ASSESSMENT AND DISCUSSION: Type 1 diabetes, neuropathy, and complications in the feet related to it, status post third, fourth, and fifth rays amputation on the right side and second toe amputation on the left. The patient will heal by secondary intention with negative pressure dressing and in terms of antimicrobial therapy, cultures are available from the blood, I do not see sample submitted from the foot, but I am going to go ahead and discontinue vancomycin and continue Rocephin and Flagyl. We will add some Reglan for his hiccups. Job ID: [id number]
[2020-02-28] MEDS: traMADol HCl 50 MG TAB PO PRN ×2 (15:49→22:19)
[2020-02-28 17:05] LABS: Vancomycin, Trough 20.2 ug/mL
[2020-02-28] MEDS: metroNIDAZOLE 500 MG TAB PO SCH (20:55)
[2020-02-28] MEDS: Famotidine 20 MG TAB PO SCH (20:55)
[2020-02-29 05:27] LABS: #Basophils 0.1 thou/uL (0.0-0.2); #Eosinphils 0.4 thou/uL (0.0-0.7); #Lymphocytes 1.7 thou/uL (1.20-3.40); #Neutrophils 5.8 thou/uL (1.40-6.50); %Basophils 0.6 % (0.0-1.0); %Eosinophils 4.5 % (0.0-10.0); %Lymphocytes 19.1 % (21.0-51.0); %Neutrophils 64.8 % (42.0-75.0); Hemoglobin 9.8 g/dL (14.0-18.0); Mean Corpuscular HGB CONC 32.6 g/dL (32.0-36.0); Mean Corpuscular Hemoglobin 31.2 pg (27.0-31.0); Mean Corpuscular Volume 95.7 fL (78.0-98.0); Mean Platelet Volume 6.8 fL (7.4-10.4); Platelet Count 460 thou/uL (130-400); RBC Distribution Width 11.2 % (11.5-14.5); Red Blood Cell (RBC) Count 3.14 mill/uL (4.70-6.10)
[2020-02-29 05:44] LABS: Anion Gap 13 mmol/L (10-20); BUN (Urea Nitrogen) 9 mg/dL (8.9-20.6); Calc. Creatinine Clearance 88 mL/min (70-130); Calcium 8.1 mg/dL (7.8-10.44); Carbon Dioxide 24 mmol/L (22-29); Chloride 104 mmol/L (98-107); Estimated GFR-MDRD Greater than 90; Glucose 120 mg/dL (70-105); Potassium 3.6 mmol/L (3.5-5.1); Sodium 137 mmol/L (136-145)
[2020-02-29] MEDS: Famotidine 20 MG TAB PO SCH ×2 (08:23→20:32)
[2020-02-29] MEDS: Atenolol 25 MG TAB PO SCH (08:23)
[2020-02-29] MEDS: metroNIDAZOLE 500 MG TAB PO SCH ×3 (08:24→20:32)
[2020-02-29] MEDS: Lisinopril 5 MG TAB PO SCH (08:24)
[2020-02-29] MEDS: traMADol HCl 50 MG TAB PO PRN ×2 (09:07→18:42)
[2020-02-29] MEDS: Rosuvastatin 5 MG TAB PO SCH (09:08)
--- NOTE | 2020-02-29 12:21 | PRG ---
DATE OF SERVICE: 02/29/2020 Jose Cifuentes, wound VAC was changed today. I was not notified, but Wound Care reports the wound is granulating, looks good. The wound of the left foot looks good. The wound the left foot was not infected. It was closed primarily, performed 1st. The wound of the right foot had copious thick purulent material that I thought had been cultured on presentation to the ER as he had open plantar neuropathic ulcer communicating, but I do not see records of that. From a surgical standpoint, patient can weightbear as tolerated, limited mobility around the house though would not take long walks or taking long trips or hikes. The patient is stable to be discharged home on oral antibiotics per Dr. Hackett. The patient has excellent blood supply. The wound is granulating, will heal secondarily. I will see him in my office in 2 to 3 weeks. I will see him as needed this hospitalization. Job ID: [id number]
[2020-02-29] MEDS ORDERED: chlorproMAZINE HCl 50 MG/2 ML AMP SLOW IVP PRN (15:31)
--- NOTE | 2020-02-29 15:34 | PDOC.HOSPP ---
- Subjective Encounter Date: 02/29/20 Encounter Time: 15:32 Subjective: Mr. Cifuentes was seen today in follow-up of diabetic foot infection. He continues to have hiccups. - Objective Vital Signs & Weight: Vital Signs (12 hours) Temp Pulse Resp BP BP Pulse Ox 02/29/20 11:00 98.1 F 80 16 144/76 H 95 02/29/20 08:24 82 157/76 H 02/29/20 08:23 82 159/76 H Weight Admit Weight 130 lb 11.2 oz Weight 130 lb 11.2 oz I&O: 02/28/20 02/29/20 03/01/20 06:59 06:59 06:59 Intake Total 1610 1320 Output Total 1250 Balance 1610 70 Result Diagrams: 02/29/20 05:11 02/29/20 05:11 Additional Labs: Accuchecks 02/29/20 02/29/20 02/28/20 11:06 04:17 19:30 POC Glucose 71 111 H 107 H 02/28/20 02/27/20 16:41 16:39 POC Glucose 86 54 L* Hospitalist ROS - Medication Medications: Active Medications Generic Name Dose Route Start Last Admin Trade Name Freq PRN Reason Stop Dose Admin Acetaminophen 1,000 mg 02/25/20 19:42 02/25/20 21:55 Acetaminophen 500 Mg Tab PO 1,000 mg Q6H PRN Administration Moderate to Severe Pain (6-10) Al Hydroxide/Mg Hydroxide 30 ml 02/26/20 22:08 02/27/20 04:57 Mag-Al 1200 Mg/1200 Mg/30 Ml Udcup PO 30 ml Q4H PRN Administration Indigestion Atenolol 25 mg 02/25/20 09:00 02/29/20 08:23 Atenolol 25 Mg Tab PO 25 mg DAILY TANIYA Administration Famotidine 20 mg 02/28/20 21:00 02/29/20 08:23 Famotidine 20 Mg Tab PO 20 mg Q12HR TANIYA Administration Ceftriaxone Sodium 2 gm/ 100 mls @ 200 mls/hr 02/28/20 16:00 02/28/20 15:44 Sodium Chloride IVPB 100 mls Q24HR TANIYA Administration Insulin Human Lispro 0 units 02/25/20 03:17 02/27/20 05:54 Humalog 300 Units/3 Ml Vial SC 6 unit .AGGRESSIVE SLIDING PRN Administration Aggressive Correctional Scale Lisinopril 5 mg 02/25/20 09:00 02/29/20 08:24 Lisinopril 5 Mg Tab PO 5 mg DAILY TANIYA Administration Metronidazole 500 mg 02/28/20 21:00 02/29/20 08:24 Metronidazole 500 Mg Tab PO 500 mg TID TANIYA Administration Ondansetron HCl 4 mg 02/25/20 03:14 02/25/20 08:22 Ondansetron Odt 4 Mg Tab PO 4 mg Q6H PRN Administration Nausea/Vomiting Pantoprazole Sodium 40 mg 02/28/20 09:00 02/29/20 08:24 Pantoprazole 40 Mg Tab PO 40 mg DAILY TANIYA Administration Rosuvastatin Calcium 5 mg 02/25/20 09:00 02/29/20 09:08 Rosuvastatin 5 Mg Tab PO 5 mg DAILY TANIYA Administration Tramadol HCl 50 mg 02/25/20 19:42 02/29/20 09:07 Tramadol Hcl 50 Mg Tab PO 50 mg Q6H PRN Administration Pain 1-3 Tramadol HCl 100 mg 02/25/20 19:42 02/28/20 22:19 Tramadol Hcl 50 Mg Tab PO 100 mg Q6H PRN Administration Pain 4-5 - Exam Eye: PERRL, anicteric sclera Heart: RRR, no murmur, no gallops, no rubs, normal peripheral pulses Respiratory: CTAB, no wheezes, no rales, no ronchi, normal chest expansion, no tachypnea Gastrointestinal: soft, non-tender, non-distended, normal bowel sounds, no palpable masses, no hepatomegaly Extremities: no cyanosis (wound photos noted) Hosp A/P (1) Osteomyelitis of foot Code(s): M86.9 - OSTEOMYELITIS, UNSPECIFIED Status: Acute Qualifiers: Osteomyelitis type: unspecified type Laterality: right Qualified Code(s): M86.9 - Osteomyelitis, unspecified (2) Diabetic neuropathy Code(s): E11.40 - TYPE 2 DIABETES MELLITUS WITH DIABETIC NEUROPATHY, UNSP Status: Chronic Qualifiers: Diabetes mellitus type: type 2 Diabetes mellitus complication detail: diabetic polyneuropathy Qualified Code(s): E11.42 - Type 2 diabetes mellitus with diabetic polyneuropathy (3) Hypertension Code(s): I10 - ESSENTIAL (PRIMARY) HYPERTENSION Status: Chronic Qualifiers: Hypertension type: essential hypertension Qualified Code(s): I10 - Essential (primary) hypertension (4) Insulin dependent diabetes mellitus Code(s): [id number] - Status: Chronic - Plan * Diabetic foot infection- He is s/p toe amputation * Continue the current antibiotics. Will discuss with ID which antibiotic to change to * HTN- blood pressure is stable * DM-blood glucose is stable * Awaiting wound vac and arrangements for out patient wound care
[2020-02-29] MEDS: cefTRIAXone\\ROCEPHIN 2 GM in Sodium Chloride 0.9% 100 ML IVPB SCH (18:28)
--- NOTE | 2020-02-29 20:49 | PQF ---
CLINICAL DOCUMENTATION CLARIFICATION FORM: Dear Dr. MIRANDA MARCANO Date / Time: 02-29-20 Please exercise your independent, professional judgment in responding to the clarification form. Clinical indicators are provided on the bottom of this form for your review. Please check appropriate box(es): [ X] Sepsis due to: __Diabetic foot infection [ ] Severe sepsis with associated acute organ dysfunction: [ ] Acute Kidney injury w/o ATN [ ] Additional/Other: please specify: [ ] Localized infection without sepsis [ ] SIRS due to non-infectious process (please specify etiology) [ ] with organ dysfunction [ ] without organ dysfunction [ ] Other diagnosis [ ] Unable to determine In addition, please specify: Present on Admission (POA): [ X ] Yes [ ] No [ ] Unable to determine For continuity of documentation, please document condition throughout progress notes and discharge summary. Thank You. To be completed by CDI/Coding staff for physician review: CLINICAL INDICATORS - SIGNS / SYMPTOMS / LABS / RESULTS AND LOCATION IN MR: H&P 02-25-20 DR. FALK: OSTEO OF FOOT, ACUTE BANDEMIA, CHE, HYPERGLYCEMIA, DIABETIC NEUROPATHY, NAUSEA, VOMITING 02-25-20 H&P: ACUTE OSTEOMYELITIS OF FOOT, CHE, DIABETIC NEUROPATHY, HTN, FTT, CHRONIC ANEMIA, TEMP: 02-25-20: 99.2, 99 02-26-20: 99.3 HR: 02-25-20: 107, 97 WBC: 02-25-20: 15.4, 02-26-20: 17.6, 02-27-20: 13.4 BANDS: 02-27-20: 23 RISK FACTORS / RESULTS AND LOCATION IN MR: H&P 02-25-20 DR. FALK: OSTEO OF FOOT, ACUTE BANDEMIA, CHE, HYPERGLYCEMIA, DIABETIC NEUROPATHY, NAUSEA, VOMITING TREATMENTS / RESULTS AND LOCATION IN MR: H&P 02-25-20: IS ON CEFEPIME AND VANC, LANTUS BID WITH AGGRESSIVE COVERAGE FOR NOW, AWAITING SURGICAL EVAL CDS Signature: Kaleigh Castillo Phone #: [phone] Date: 02-29-20 This is a permanent part of the Medical Record [facility]
--- NOTE | 2020-03-01 07:35 | PDOC.HOSPP ---
- Subjective Encounter Date: 03/01/20 Encounter Time: 08:15 Subjective: Mr. Cifuentes was seen and examined this morning for follow up of his diabetic foot infection. Patient is S/P amputation of right foot digits: 3, 4, and 5 and left foot digit amputation of the 2nd toe. Patient stated he slept ok and that his hiccups are resolved. Patient denied any new complaints. - Objective Vital Signs & Weight: Vital Signs (12 hours) Temp Pulse Resp BP Pulse Ox 03/01/20 07:26 98.0 F 82 20 138/75 97 02/29/20 20:02 97.9 F 78 16 115/63 98 Weight Admit Weight 130 lb 11.2 oz Weight 130 lb 11.2 oz I&O: 02/29/20 03/01/20 03/02/20 06:59 06:59 06:59 Intake Total 1320 Output Total 1250 Balance 70 Result Diagrams: 02/29/20 05:11 02/29/20 05:11 Additional Labs: Accuchecks 03/01/20 02/29/20 02/29/20 04:13 20:00 16:24 POC Glucose 111 H 71 127 H 02/29/20 02/27/20 11:06 16:39 POC Glucose 71 54 L* Hospitalist ROS - Review of Systems Constitutional: denies: fever, chills Respiratory: reports: pleuritic pain. denies: cough, shortness of breath Cardiovascular: denies: palpitations Gastrointestinal: reports: other (patient stated no BM since last week). denies: nausea, vomiting, diarrhea Neurological: denies: weakness, numbness - Medication Medications: Active Medications Generic Name Dose Route Start Last Admin Trade Name Freq PRN Reason Stop Dose Admin Acetaminophen 1,000 mg 02/25/20 19:42 02/25/20 21:55 Acetaminophen 500 Mg Tab PO 1,000 mg Q6H PRN Administration Moderate to Severe Pain (6-10) Al Hydroxide/Mg Hydroxide 30 ml 02/26/20 22:08 02/27/20 04:57 Mag-Al 1200 Mg/1200 Mg/30 Ml Udcup PO 30 ml Q4H PRN Administration Indigestion Atenolol 25 mg 02/25/20 09:00 02/29/20 08:23 Atenolol 25 Mg Tab PO 25 mg DAILY TANIYA Administration Chlorpromazine HCl 25 mg 02/29/20 15:31 02/29/20 18:22 Chlorpromazine Hcl 50 Mg/2 Ml Amp SLOW IVP 25 mg Q6H PRN Administration Hiccups Famotidine 20 mg 02/28/20 21:00 02/29/20 20:32 Famotidine 20 Mg Tab PO 20 mg Q12HR TANIYA Administration Ceftriaxone Sodium 2 gm/ 100 mls @ 200 mls/hr 02/28/20 16:00 02/29/20 18:28 Sodium Chloride IVPB 100 mls Q24HR TANIYA Administration Insulin Human Lispro 0 units 02/25/20 03:17 02/27/20 05:54 Humalog 300 Units/3 Ml Vial SC 6 unit .AGGRESSIVE SLIDING PRN Administration Aggressive Correctional Scale Lisinopril 5 mg 02/25/20 09:00 02/29/20 08:24 Lisinopril 5 Mg Tab PO 5 mg DAILY TANIYA Administration Metronidazole 500 mg 02/28/20 21:00 02/29/20 20:32 Metronidazole 500 Mg Tab PO 500 mg TID TANIYA Administration Ondansetron HCl 4 mg 02/25/20 03:14 02/25/20 08:22 Ondansetron Odt 4 Mg Tab PO 4 mg Q6H PRN Administration Nausea/Vomiting Pantoprazole Sodium 40 mg 02/28/20 09:00 02/29/20 08:24 Pantoprazole 40 Mg Tab PO 40 mg DAILY TANIYA Administration Rosuvastatin Calcium 5 mg 02/25/20 09:00 02/29/20 09:08 Rosuvastatin 5 Mg Tab PO 5 mg DAILY TANIYA Administration Tramadol HCl 100 mg 02/25/20 19:42 02/29/20 18:42 Tramadol Hcl 50 Mg Tab PO 100 mg Q6H PRN Administration Pain 4-5 - Exam General Appearance: NAD, awake alert Heart: RRR, no murmur Respiratory: CTAB, no wheezes, no rales, no ronchi, no tachypnea Gastrointestinal: soft, non-tender, non-distended, normal bowel sounds Musculoskeletal: normal strength (UE) Psychiatric: normal affect, normal behavior, A&O x 3 Hosp A/P (1) Osteomyelitis of foot Code(s): M86.9 - OSTEOMYELITIS, UNSPECIFIED Status: Acute Qualifiers: Osteomyelitis type: unspecified type Laterality: right Qualified Code(s): M86.9 - Osteomyelitis, unspecified (2) Diabetic neuropathy Code(s): E11.40 - TYPE 2 DIABETES MELLITUS WITH DIABETIC NEUROPATHY, UNSP Status: Chronic Qualifiers: Diabetes mellitus type: type 2 Diabetes mellitus complication detail: diabetic polyneuropathy Qualified Code(s): E11.42 - Type 2 diabetes mellitus with diabetic polyneuropathy (3) Hypertension Code(s): I10 - ESSENTIAL (PRIMARY) HYPERTENSION Status: Chronic Qualifiers: Hypertension type: essential hypertension Qualified Code(s): I10 - Essentia l (primary) hypertension (4) Insulin dependent diabetes mellitus Code(s): [id number] - Status: Chronic - Plan * Diabetic foot infection- He is s/p toe amputation for right foot digits: 3,4, and 5 and left foot 2nd toe. * Continue the current antibiotics. Review antibiotic choice with ID. * HTN- blood pressure is stable * DM-blood glucose is stable * Consult case management for status of wound vac. Patient has follow up with out patient wound care * Patient seen and examined and discussed with Gregoria Wilburn, MS-3, and agree with above. Mr. Cifuentes says his symptoms have improved. He denies pain in his feet, and the hiccups have improved. His exam is unchanged. Agree with the plan outlined as above. Awaiting the wound vac approval. Will need to transition to oral antibiotics. Close outpatient follow-up.
[2020-03-01] MEDS: Lisinopril 5 MG TAB PO SCH (08:47)
[2020-03-01] MEDS: Atenolol 25 MG TAB PO SCH (08:48)
[2020-03-01] MEDS: Famotidine 20 MG TAB PO SCH ×2 (08:48→20:16)
[2020-03-01] MEDS: metroNIDAZOLE 500 MG TAB PO SCH ×3 (08:48→20:16)
[2020-03-01] MEDS: Rosuvastatin 5 MG TAB PO SCH (13:00)
[2020-03-01] MEDS: cefTRIAXone\\ROCEPHIN 2 GM in Sodium Chloride 0.9% 100 ML IVPB SCH (17:29)
[2020-03-01] MEDS: Acetaminophen 500 MG TAB PO PRN (18:35)
[2020-03-01] MEDS: traMADol HCl 50 MG TAB PO PRN (18:36)
--- NOTE | 2020-03-02 07:51 | PDOC.HOSPP ---
- Subjective Encounter Date: 03/02/20 Encounter Time: 08:20 Subjective: Mr. Cifuentes is a 49 y/o male seen and examined for followup on diabetic foot infection. Patient is s/p amputation of 3rd, 4th, and 5th digits on right foot and 2nd digit on left foot. Patient stated he was ok, slept fine, and had no hiccups yesterday. Patient denied any new complaints or symptoms. - Objective Vital Signs & Weight: Vital Signs (12 hours) Temp Pulse Resp BP Pulse Ox 03/02/20 07:21 98.1 F 66 16 151/78 H 98 03/02/20 04:00 97.8 F 75 18 120/70 97 03/02/20 00:00 97.8 F 74 18 128/69 97 03/01/20 20:00 97 03/01/20 19:54 98.3 F 76 18 138/73 97 Weight Admit Weight 130 lb 11.2 oz Weight 130 lb 11.2 oz I&O: 03/01/20 03/02/20 03/03/20 06:59 06:59 06:59 Output Total 890 Balance -890 Result Diagrams: 02/29/20 05:11 02/29/20 05:11 Additional Labs: Accuchecks 03/02/20 03/01/20 03/01/20 04:44 20:02 16:30 POC Glucose 95 166 H 167 H 03/01/20 11:38 POC Glucose 154 H Hospitalist ROS - Review of Systems Constitutional: denies: fever, chills, sweats Respiratory: denies: cough, shortness of breath, SOB with excertion Cardiovascular: denies: chest pain, palpitations Gastrointestinal: denies: nausea, vomiting, diarrhea, constipation Neurological: denies: weakness, numbness - Medication Medications: Active Medications Generic Name Dose Route Start Last Admin Trade Name Freq PRN Reason Stop Dose Admin Acetaminophen 1,000 mg 02/25/20 19:42 03/01/20 18:35 Acetaminophen 500 Mg Tab PO 1,000 mg Q6H PRN Administration Moderate to Severe Pain (6-10) Al Hydroxide/Mg Hydroxide 30 ml 02/26/20 22:08 02/27/20 04:57 Mag-Al 1200 Mg/1200 Mg/30 Ml Udcup PO 30 ml Q4H PRN Administration Indigestion Atenolol 25 mg 02/25/20 09:00 03/01/20 08:48 Atenolol 25 Mg Tab PO 25 mg DAILY TANIYA Administration Chlorpromazine HCl 25 mg 02/29/20 15:31 02/29/20 18:22 Chlorpromazine Hcl 50 Mg/2 Ml Amp SLOW IVP 25 mg Q6H PRN Administration Hiccups Famotidine 20 mg 02/28/20 21:00 03/01/20 20:16 Famotidine 20 Mg Tab PO 20 mg Q12HR TANIYA Administration Ceftriaxone Sodium 2 gm/ 100 mls @ 200 mls/hr 02/28/20 16:00 03/01/20 17:29 Sodium Chloride IVPB 100 mls Q24HR TANIYA Administration Insulin Human Lispro 0 units 02/25/20 03:17 02/27/20 05:54 Humalog 300 Units/3 Ml Vial SC 6 unit .AGGRESSIVE SLIDING PRN Administration Aggressive Correctional Scale Lisinopril 5 mg 02/25/20 09:00 03/01/20 08:47 Lisinopril 5 Mg Tab PO 5 mg DAILY TANIYA Administration Metronidazole 500 mg 02/28/20 21:00 03/01/20 20:16 Metronidazole 500 Mg Tab PO 500 mg TID TANIYA Administration Ondansetron HCl 4 mg 02/25/20 03:14 02/25/20 08:22 Ondansetron Odt 4 Mg Tab PO 4 mg Q6H PRN Administration Nausea/Vomiting Pantoprazole Sodium 40 mg 02/28/20 09:00 03/01/20 08:48 Pantoprazole 40 Mg Tab PO 40 mg DAILY TANIYA Administration Rosuvastatin Calcium 5 mg 02/25/20 09:00 03/01/20 13:00 Rosuvastatin 5 Mg Tab PO 5 mg DAILY TANIYA Administration Tramadol HCl 100 mg 02/25/20 19:42 03/01/20 18:36 Tramadol Hcl 50 Mg Tab PO 100 mg Q6H PRN Administration Pain 4-5 - Exam General Appearance: NAD, awake alert Heart: RRR, no murmur Respiratory: CTAB, no wheezes, no rales, no ronchi Gastrointestinal: soft, non-tender, non-distended, normal bowel sounds Extremities: no edema Psychiatric: normal affect, normal behavior Hosp A/P (1) Osteomyelitis of foot Code(s): M86.9 - OSTEOMYELITIS, UNSPECIFIED Status: Acute Qualifiers: Osteomyelitis type: unspecified type Laterality: right Qualified Code(s): M86.9 - Osteomyelitis, unspecified (2) Diabetic neuropathy Code(s): E11.40 - TYPE 2 DIABETES MELLITUS WITH DIABETIC NEUROPATHY, UNSP Status: Chronic Qualifiers: Diabetes mellitus type: type 2 Diabetes mellitus complication detail: diabetic polyneuropathy Qualified Code(s): E11.42 - Type 2 diabetes mellitus with diabetic polyneuropathy (3) Hypertension Code(s): I10 - ESSENTIAL (PRIMARY) HYPERTENSION Status: Chronic Qualifiers: Hypertension type: essential hypertension Qualified Code(s): I10 - Essential (primary) hypertension (4) Insulin dependent diabetes mellitus Code(s): BQS8914 - Status: Chronic - Plan * Diabetic foot infection- He is s/p toe amputation for right foot digits: 3,4, and 5 and left foot 2nd toe. * Continue the current antibiotics. Review PO antibiotic choice for discharge. * HTN- monitor increased BP * DM-blood glucose is stable * Consult case management for status of wound vac for patient to bring home. Patient has follow up with out patient wound care * Patient seen and examined and discussed with Gregoria Wilburn, MS-3, and agree with above. Mr. Cifuentes says his symptoms have improved. Still awaiting Wound vac. Will possibly have disposable wound vac placed.
[2020-03-02] MEDS: metroNIDAZOLE 500 MG TAB PO SCH ×2 (09:20→15:37)
[2020-03-02] MEDS: Lisinopril 5 MG TAB PO SCH (09:20)
[2020-03-02] MEDS: Rosuvastatin 5 MG TAB PO SCH (09:20)
[2020-03-02] MEDS: Atenolol 25 MG TAB PO SCH (09:20)
[2020-03-02] MEDS: Famotidine 20 MG TAB PO SCH (09:20)
[2020-03-02] MEDS: traMADol HCl 50 MG TAB PO PRN (10:13)
--- NOTE | 2020-03-02 15:31 | PRG ---
DATE OF SERVICE: 03/02/2020 SUBJECTIVE: No pain. No respiratory symptoms or diarrhea. Voiding without difficulty. OBJECTIVE: VITAL SIGNS: Afebrile. BP 150/70, heart rate 66. GENERAL: Does not appear in distress. Oriented. LUNGS: Clear. HEART: S1 and S2, regular rate. ABDOMEN: Soft. Not distended. EXTREMITIES: Right foot with negative pressure dressing. The left one dressed, not removed. LABORATORY DATA: White cell count 9.0, hemoglobin 9.8, platelets 460. Creatinine 0.84. Cultures; group B Strep from 2 sets of blood cultures. ASSESSMENT AND DISCUSSION: Type 1 diabetes, neuropathy, feet complications related to it, status post 3rd, 4th, and 5th ray amputation with negative pressure dressing, and second toe amputation on the left, group B Strep bacteremia from the foot. I think, he is eligible to transition to Augmentin 875 twice daily for at least four weeks. Follow up in the clinic. Job ID: [id number]
[2020-03-02] MEDS: cefTRIAXone\\ROCEPHIN 2 GM in Sodium Chloride 0.9% 100 ML IVPB SCH (16:25)
[2020-03-02 17:27] VITALS: BP 155/79; TEMP 98.3
--- NOTE | 2020-03-02 18:37 | DIS ---
DATE OF ADMISSION: 02/25/2020 DATE OF DISCHARGE: 03/02/2020 DISCHARGE DISPOSITION: Home. DISCHARGE DIAGNOSES: 1. Diabetic foot infection. 2. Diabetes mellitus type 1. 3. Hypertension. 4. Hyperlipidemia. 5. History of chronic pain. 6. Diabetic neuropathy. DISCHARGE MEDICATIONS: Include; 1. Augmentin 875 mg p.o. b.i.d. 2. Tramadol 50 mg p.o. q.6 as needed for pain. 3. Lisinopril 5 mg p.o. daily. 4. Atenolol 25 mg p.o. daily. 5. Potassium gluconate daily. 6. Crestor 5 mg p.o. daily. PROCEDURES DONE DURING THE ADMISSION: The patient had an amputation of the second toe through the proximal phalanx with primary closure and then amputation of the third, fourth, and fifth toes and metatarsals with wound irrigation and wound VAC application. CODE STATUS: Full code. ALLERGIES: NO KNOWN DRUG ALLERGIES. HOSPITAL COURSE: Mr. Cifuentes is a 49-year-old gentleman, who had noticed worsening infection of both feet. He is a type 1 diabetic with peripheral neuropathy. It was discovered that the toes would not be salvageable. Clinically, he had adequate distal circulation. The patient underwent amputation of the second toe on the left foot and on the right. He had an amputation of the third, fourth, and fifth toes through the metatarsal and his wound VAC was placed. ID was consulted to aid in the antibiotic choice. Once the wound VAC was arranged, the patient was able to be discharged home. Outpatient wound care was set up by case management and he was given a disposable wound VAC, which would cover him for seven days, at which time hopefully, the insurance company would have authorized the wound VAC or he may no longer need the wound VAC. Job ID: [id number]
== END 2020-03-02 18:20 | disposition home or self-care (01) | DRG 854 ==
LOC: 2NO 02-25 01:28 → T4-A 02-25 14:59
PROVIDERS: ADMIT Internal Medicine; ATTEND Internal Medicine
PROC: 0Y6S0Z1 Detachment at Left 2nd Toe, High, Open Approach (ICD-10-PCS; principal; 2020-02-26)
PROC: 0Y6M0ZC Detachment at Right Foot, Partial 3rd Ray, Open Approach (ICD-10-PCS; 2020-02-26)
PROC: 0Y6M0ZD Detachment at Right Foot, Partial 4th Ray, Open Approach (ICD-10-PCS; 2020-02-26)
PROC: 0Y6M0ZF Detachment at Right Foot, Partial 5th Ray, Open Approach (ICD-10-PCS; 2020-02-26)
DX: A41.9 Sepsis, unspecified organism (principal); M86.9 Osteomyelitis, unspecified; N17.9 Acute kidney failure, unspecified; Z68.1 Body mass index [BMI] 19.9 or less, adult; E11.52 Type 2 diabetes mellitus with diabetic peripheral angiopathy with gangrene; I96 Gangrene, not elsewhere classified; E78.5 Hyperlipidemia, unspecified; I10 Essential (primary) hypertension; R11.2 Nausea with vomiting, unspecified; D72.825 Bandemia; D64.9 Anemia, unspecified; R62.7 Adult failure to thrive; E11.65 Type 2 diabetes mellitus with hyperglycemia; E11.40 Type 2 diabetes mellitus with diabetic neuropathy, unspecified
CPT/HCPCS: 36415; 36416; 80048; 80202; 82010; 83605; 83735; 85025; 85610; 85730; 88305; 88311; 90471; 90662; G0008; J0692; J0696; J1815; J2405; J2550; J2704; J3010; J3230; J3370; J3490; J7050; Q0162; S0028

== ENCOUNTER 2023-05-02 06:16 | Day surgery (SDC) | payer BC ==
[2023-05-01 13:50] VITALS: BMI 20.9
[~2023-05-02 06:16] MED LIST: EPINEPHrine 0.3 MG in Ophthalmic Irrigation Solution 500 ML IRR SCH
[2023-05-02] MEDS ORDERED: PHENYLephrine 2.5% Ophth Soln 15 ml Bottle ONE (07:01)
[2023-05-02] MEDS ORDERED: Cyclopentolate 1% Opth Drop 2 ML BOT ONE (07:01)
[2023-05-02] MEDS ORDERED: fentaNYL 50 mcg/mL 1 mL Vial ONE ×2 (07:49→09:41)
[2023-05-02] MEDS ORDERED: Famotidine/PF 20 mg/2ml Vial ONE (07:49)
[2023-05-02] MEDS ORDERED: Midazolam HCl 2 mg/2 ml Vial ONE (07:49)
[2023-05-02] MEDS ORDERED: PROPOFOL 20 ML ONE (07:53)
[2023-05-02] MEDS ORDERED: Metoclopramide HCl 10 MG (2 mL) VIAL ONE (08:13)
[2023-05-02] MEDS ORDERED: Ondansetron PF 4 MG/2 ML Vial ONE (08:13)
[2023-05-02] MEDS ORDERED: PHENYLEPHRINE-NS 100 MCG/ML 10 ML SYRINGE ONE (08:15)
[2023-05-02] MEDS ORDERED: ePHEDrine Sulfate 50 MG/10 ML VIAL ONE (09:05)
== END 2023-05-02 11:40 | disposition home or self-care (01) ==
LOC: SDC 06:16
PROVIDERS: ATTEND Ophthalmology Retina Specialist
PROC: 08T43ZZ Resection of Right Vitreous, Percutaneous Approach (ICD-10-PCS; principal; 2023-05-02)
PROC: 08DJ3ZZ Extraction of Right Lens, Percutaneous Approach (ICD-10-PCS; principal; 2023-05-02)
DX: H59.021 Cataract (lens) fragments in eye following cataract surgery, right eye (principal); H27.01 Aphakia, right eye
CPT/HCPCS: 36416; J0171; J2250; J2405; J2704; J2765; J3010; S0028